=== PATIENT | female | born 1975 | race Hispanic/Latino ===

== ENCOUNTER 2017-07-28 22:55 | Emergency (ER) | payer OTHER ==
[2017-07-28 23:14] VITALS: BP 110/53; PULSE 60; RESP 18; TEMP 98.2; O2SAT 98
[2017-07-29] MEDS ORDERED: Lidocaine 1% Inj (20ml) IJ ONE (00:06)
--- NOTE | 2017-07-29 00:09 | ED PDOC ---
HPI: General Adult Time Seen by Provider: 07/29/17 00:07 Chief Complaint (Nursing): Abnormal Skin Integrity Chief Complaint (Provider): right thumb laceration History Per: Patient (42 y/o female here with right thumb laceration that occurred today after cutting self with knife 5 hours prior to ED arrival. Patient is right handed. ) Past Medical History Reviewed: Historical Data, Nursing Documentation, Vital Signs Vital Signs: Last Vital Signs Temp 98.2 F 07/28/17 23:11 Pulse 60 07/28/17 23:11 Resp 18 07/28/17 23:11 BP 110/53 L 07/28/17 23:11 Pulse Ox 98 07/29/17 00:31 - Family History Family History: States: No Known Family Hx - Home Medications Home Medications: Ambulatory Orders Medication Instructions Recorded Cephalexin [Keflex] 500 mg PO QID #20 cap 07/29/17 - Allergies Allergies/Adverse Reactions: Allergies Allergy/AdvReac Type Severity Reaction Status Date / Time No Known Allergies Allergy Verified 07/28/17 23:11 Review of Systems ROS Statement: Except As Marked, All Systems Reviewed And Found Negative Physical Exam - Reviewed Nursing Documentation Reviewed: Yes Vital Signs Reviewed: Yes - Physical Exam Appears: Positive for: Well, Non-toxic, No Acute Distress Head Exam: Positive for: ATRAUMATIC, NORMAL INSPECTION, NORMOCEPHALIC Skin: Positive for: Normal Color, Warm, DRY Eye Exam: Positive for: EOMI, Normal appearance, PERRL ENT: Positive for: Normal ENT Inspection Neck: Positive for: Normal, Painless ROM Cardiovascular/Chest: Positive for: Regular Rate, Rhythm Respiratory: Positive for: CNT, Normal Breath Sounds Gastrointestinal/Abdominal: Positive for: Normal Exam, Bowel Sounds, Soft Back: Positive for: Normal Inspection Extremity: Positive for: Normal ROM, Swelling (mcp thumb right hand; patient noted to have difficulty with flexing at mcp states this is old injury) Neurologic/Psych: Positive for: Alert, Oriented - ECG O2 Sat by Pulse Oximetry: 98 - Progress ED Course And Treament: tetanus up to date 1 year ago XRY OF THUMB: NO FX. placed in thumb splint Disposition - Clinical Impression Clinical Impression: Tendon injury, Thumb laceration - Patient ED Disposition Is Patient to be Admitted: No - Disposition Referrals: Jalil Taylor MD [Staff Provider] - Disposition: Routine/Home Disposition Time: 00:46 Condition: FAIR Additional Instructions: RETURN TO ED/PMD/URGENT CARE OR HAND SURGEON FOR REMOVAL OF SUTURES IN 7 DAYS PLEASE KEEP SPLINT UNTIL SEEN BY HAND SURGEON. Prescriptions: Cephalexin [Keflex] 500 mg PO QID #20 cap Instructions: Tendon Rupture (ED), Care For Your Stitches (ED) Forms: [employer] (Y[place]i) Procedure: Wound Repair - Time Performed Time Performed: 00:30 - Time Out Time Out: Site verified - Consent Obtained Consent obtained: Verbal - Performed by Performed by: Mid-level Provider - Indications Indication(s):: Laceration - Location Location:: Right, Hand Finger:: Right, Thumb Shape:: Linear Dimensions Length cm: 1.25cm Depth:: Epidermis - Anesthetic Technique Anesthetic Technique: Local Local/Regional Anesthetic:: Lidocaine 2% - Debris Debris:: None - Complexity Complexity:: Simple (one layer) - Wound repair method Sutures:: # (three ), Size (4-0), Type (nylon), Technique (interrupted)
[2017-07-29] MEDS ORDERED: Lidocaine 1% Inj (20ml) ONE (00:12)
--- NOTE | 2017-07-29 09:24 | RAD ---
PROCEDURE: Right Thumb radiographs. HISTORY: hand injury COMPARISON: None. TECHNIQUE: AP radiograph of the right hand, as well as spot oblique and lateral images of thumb were obtained. FINDINGS: RIGHT THUMB: No acute fracture. JOINTS: Hyperextension of 1st interphalangeal joint. SOFT TISSUES: Normal. OTHER FINDINGS: None. IMPRESSION: Hyperextension of 1st interphalangeal joint. No acute fracture. ER notification submitted electronically.
== END 2017-07-29 01:02 | disposition home or self-care (01) ==
LOC: H.ER 22:55
DX: S61.011A Laceration without foreign body of right thumb without damage to nail, initial encounter (principal); W26.0XXA Contact with knife, initial encounter; Y92.89 Other specified places as the place of occurrence of the external cause

== ENCOUNTER 2017-07-31 08:05 | Observation (INO) | payer OTHER ==
--- NOTE | 2017-07-31 08:57 | ED PDOC ---
Upper Extremity Pain/Injury Time Seen by Provider: 07/31/17 08:37 Chief Complaint (Nursing): Upper Extremity Problem/Injury Chief Complaint (Provider): thumb movement issue History Per: Patient History/Exam Limitations: no limitations Onset/Duration Of Symptoms: Days (Sunday) Current Symptoms Are (Timing): Still Present Additional Complaint(s): Pt. with difficulty moving thumb R. Was here on Sat and had suturing done after she cut her thumb while cooking. She saw Dr. Schmitz. Here now as she still has decreased movement at the thumb. Mild pain at cut area. No numbness , tingles. Past Medical History Reviewed: Historical Data, Nursing Documentation, Vital Signs Vital Signs: Last Vital Signs Temp 98.0 F 07/31/17 08:12 Pulse 75 07/31/17 08:12 Resp 14 07/31/17 08:12 BP 124/78 07/31/17 08:12 Pulse Ox 100 07/31/17 08:12 - Medical History PMH: No Chronic Diseases - Surgical History Surgical History: No Surg Hx - Family History Family History: States: Unknown Family Hx - Home Medications Home Medications: Ambulatory Orders Medication Instructions Recorded No Known Home Med 07/31/17 - Allergies Allergies/Adverse Reactions: Allergies Allergy/AdvReac Type Severity Reaction Status Date / Time No Known Allergies Allergy Verified 07/28/17 23:11 Review of Systems ROS Statement: Except As Marked, All Systems Reviewed And Found Negative Musculoskeletal: Positive for: Other (thumb) Physical Exam - Reviewed Nursing Documentation Reviewed: Yes Vital Signs Reviewed: Yes - Physical Exam Appears: Positive for: Non-toxic, No Acute Distress Head Exam: Positive for: ATRAUMATIC, NORMAL INSPECTION, NORMOCEPHALIC Skin: Positive for: Normal Color, Warm, DRY Neck: Positive for: Normal, Painless ROM Cardiovascular/Chest: Positive for: Regular Rate, Rhythm Respiratory: Positive for: CNT, Normal Breath Sounds Pulses-Radial (R): 2+ Back: Positive for: Normal Inspection. Negative for: L CVA Tenderness, R CVA Tenderness Extremity: Positive for: Tenderness (R thumb dorsal with sutures in place; no erythema or dc; limited range of motion of thumb.) Neurologic/Psych: Positive for: Alert, Oriented - ECG O2 Sat by Pulse Oximetry: 100 Pulse Ox Interpretation: Normal - Progress ED Course And Treament: 858: Stable. Spoke with Dr. Schmitz. Will admit to his service for further eval and treatment. Failed outpt tx. Disposition - Clinical Impression Clinical Impression: Tendon injury - Patient ED Disposition Is Patient to be Admitted: Yes Counseled Patient/Family Regarding: Studies Performed, Diagnosis - Disposition Disposition Time: 08:59 Condition: FAIR - Pt Status Changed To: Hospital Disposition Of: Observation - POA Present On Arrival: Falls Or Trauma
[2017-07-31] MEDS ORDERED: Sodium Chloride 0.9% 1,000 ML IV STA (09:02)
[2017-07-31 09:35] LABS: BASO % 0.5 % (0.0-2.0); EOS # 0.2 K/uL (0.0-0.7); HEMOGLOBIN 13.2 g/dL (12.0-16.0); LYMPH # 0.9 K/uL (1.0-4.3); LYMPH % 25.4 % (20.0-40.0); MEAN CELL VOLUME 90.5 fl (81.0-99.0); MEAN CORPUSCULAR HEMOGLOBIN 31.7 pg (27.0-31.0); MEAN PLATELET VOLUME 7.6 fl (7.2-11.7); MONO # 0.2 K/uL (0.0-0.8); MONO % 6.6 % (0.0-10.0); NEUT # 2.2 K/uL (1.8-7.0); NEUT % 62.5 % (50.0-75.0); NRBC % 0.1 % (0.0-0.0); RBC 4.17 Mil/uL (3.80-5.20); RED CELL DISTRIBUTION WIDTH 12.2 % (11.5-14.5); WHITE BLOOD COUNT 3.5 K/uL (4.8-10.8)
[2017-07-31 09:50] LABS: PARTIAL THROMBOPLASTIN TIME 28.7 Seconds (25.6-37.1)
[2017-07-31 10:00] LABS: ALB/GLOB RATIO 1.3 (1.0-2.1); ALBUMIN 3.8 g/dL (3.5-5.0); ALT/SGPT 24 U/L (9-52); AST/SGOT 26 U/L (14-36); BLOOD UREA NITROGEN 10 mg/dl (7-17); GFR AFRICAN-AMERICAN > 60; GFR NON-AFRICAN AMERICAN > 60
[2017-07-31] MEDS ORDERED: Bupivacaine 0.5% Inj(30mL) ONE (10:54)
[2017-07-31] MEDS ORDERED: Propofol 10 mg/ml Inj (20 ML) ONE (11:10)
[2017-07-31] MEDS ORDERED: Midazolam 2 MG/2 ML VIAL ONE (11:11)
[2017-07-31] MEDS ORDERED: Lactated Ringer's 1,000 ML IV ONE (12:40)
[2017-07-31] MEDS ORDERED: Bupivacaine 0.5% 50 ML IJ ONE ×2 (13:09→13:18)
[2017-07-31] MEDS ORDERED: HYDROmorphone 0.5 mg/0.5 ml ISec IVP PRN (13:31)
[2017-07-31] MEDS ORDERED: Lactated Ringer's 1,000 ML IV SCH (13:45)
[2017-07-31 15:18] VITALS: RESP 18
[2017-07-31 16:00] VITALS: BP 106/54; PULSE 62; TEMP 98; O2SAT 99
--- NOTE | 2017-07-31 17:12 | CARD ---
APPROVED REPORT EKG Measurement Heart [id number] <Conclusion> Sinus bradycardia with 1st degree AV block Otherwise normal ECG
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
--- NOTE | 2017-08-02 00:16 | OP ---
PROCEDURE DATE: 07/31/2017 PREOPERATIVE DIAGNOSES: 1. Right thumb open wound. 2. Right thumb extensor tendon laceration. POSTOPERATIVE DIAGNOSES: 1. Right thumb open wound. 2. Right thumb extensor tendon laceration. 3. Right thumb dorsal metacarpophalangeal capsule laceration. PROCEDURE: 1. Right thumb primary repair of the dorsal capsule/ligament, 25912. 2. Right thumb open wound exploration and debridement, . 3. Right thumb extensor pollicis brevis primary repair, 55123. SURGEON: Pierre Schmitz MD COLLISION WORKER: PAMELA Babb TYPE OF ANESTHESIA: Local and IV sedation. ESTIMATED BLOOD LOSS: Minimal. COMPLICATIONS: None. SPECIMEN: None. DISPOSITION: Stable to recovery room. INDICATION: A 42-year-old female who presents to emergency room with laceration on the dorsum of the thumb and difficulty with thumb abduction, who was taken to the surgery for wound exploration and debridement and primary repair of injured structures. Risks of surgery were explained, included but not limited to bleeding, infection, tendon, nerve, vessel injury, instability, chronic pain, and potential need for additional surgery in the future. The patient understood the above risks and elected to proceed. Informed consent was obtained. DESCRIPTION OF PROCEDURE: The patient was brought to the operating room and placed supine on the operating room table. After adequate general anesthesia was given, a well-padded non-sterile tourniquet was placed on the patient's right upper extremity. Right upper extremity was then prepped and draped in standard surgical fashion. A time-out was performed. An incision was outlined and this incision incorporated the laceration site over the dorsum of the MCP joint. The hand was elevated and exsanguinated and incision was made to the skin only. All ports of the superficial veins were cauterized directly deep to the incision. The wound was explored, it has lacerated extensor pollicis brevis tendon above 90% wound mid laceration, continued deep involving the dorsal capsule of the MCP joint. Debridement of the wound was done with rongeur, . Debridement was performed down to the bone and joint level. The joint was exposed and irrigated out. Next, work was begun on primary repairing the capsule. A 4-0 Vicryl suture was used to repair the capsule in a horizontal mattress configuration for keeping the joint in anatomic reduction. After repair of the capsule, work was begun with extensor pollicis brevis tendon. The two ends of the tendon were work together and repaired with 4-0 Vicryl sutures in horizontal mattress configuration. There is no gapping at the repair site. The patient had good stable thumb with no varus or valgus instability and there were anterior or posterior instability. The tourniquet was then deflated. Hemostasis was obtained with bipolar cautery. The skin was closed with 4-0 nylon interrupted sutures. A sterile dressing was then applied consisting of fluffs and a digital plaster hand splint with a fitting thumb MCP joint 0-degree configuration. The patient tolerated the procedure well and was returned to recovery room in excellent condition. Pierre Schmitz MD
== END 2017-07-31 16:00 | disposition home or self-care (01) ==
LOC: H.ER 08:05 → H.ERHOLD 09:04
PROVIDERS: ADMIT Orthopaedic Surgery; ATTEND Orthopaedic Surgery
DX: S66.221A Laceration of extensor muscle, fascia and tendon of right thumb at wrist and hand level, initial encounter (principal); S61.011A Laceration without foreign body of right thumb without damage to nail, initial encounter; X78.9XXA Intentional self-harm by unspecified sharp object, initial encounter; Y93.G3 Activity, cooking and baking; Y92.9 Unspecified place or not applicable; S63.641A Sprain of metacarpophalangeal joint of right thumb, initial encounter
CPT/HCPCS: 20103; 26418; 26540; 80053; 81025; 85025; 85610; 85730; 93005; 99285; G0378; J0690; J1885; J2250; J2704; J3010; J7030; J7040; J7120